=== PATIENT | male | born 1950 | race Hispanic/Latino ===

== ENCOUNTER → 2019-08-28 | Outpatient (CLI) | payer OTHER | END | disposition home or self-care (01) | LOC: OIH 11:31 | PROVIDERS: ATTEND Internal Medicine Cardiovascular Disease | DX: Z13.6 Encounter for screening for cardiovascular disorders (principal) | CPT/HCPCS: 75571 ==

== ENCOUNTER → 2024-11-23 | Outpatient (CLI) | payer OTHER, MEDICARE | END | disposition home or self-care (01) | LOC: SHCH 14:25 | PROVIDERS: ATTEND Internal Medicine Cardiovascular Disease | DX: I08.0 Rheumatic disorders of both mitral and aortic valves (principal); R06.09 Other forms of dyspnea | CPT/HCPCS: 93306 ==

== ENCOUNTER → 2024-11-25 | Outpatient (CLI) | payer OTHER, MEDICARE ==
[2024-11-25] MEDS: REGADENOSON 0.4 MG/5 ML PF SYG IVP ONE (13:11)
--- NOTE | 2024-11-26 07:45 | HMCSR ---
APPROVED REPORT Height: 5 ft 6in Weight: 155 lbs TEST INDICATIONS Dyspnea The imaging protocol used to acquire images was Rest Tc-99m/stress Tc-99m 1 day Consent: The procedure was explained and understood by the patient. Informerd consent was witnessed Ivette Rebolledo RN First, low dose rest was performed then high dose stress. RESTING DATA: The resting ekg shows: Atrial Fibrillation Rest SPECT myocardial perfusion imaging was performed in supine position 56 minutes following the int ravenous injection of 11.1 mCi of Tc-99 Sestamibi. Time of rest injection: 09:02: Date: 11/25/2024 Time of rest imagin:58: Date: 11/25/2024 PHARMACOLOGIC STRESS: Pharmacologic stress test was performed by injecting regadenoson 0.4 mg IV push followed by the intra venous injection of 32.0 mCi of Tc-99 Sestamibi. Time of stress injection: 10:36: Date: 11/25/2024 Time of stress imagin:14: Date: 11/25/2024 Heart Rate at time of stress injection: 77 bpm. Gated Stress SPECT was performed 98 minutes after stress injection. The images were gated to evaluate regional wall motion and calculate left ventricular ejection fracti on. STRESS DETAILS Reason for Termination: Infusion complete Stress Symptoms: Dyspnea Max HR Achieved: 122 bpm % of APMHR Achieved: 76 Max Blood Pressure: 126/76 mmHg Stress ECG: Atrial Fibrillation LEFT VENTRICLE Size: The left ventricular size is mildly dilated. Systolic Function:The left ventricular systolic function is mildly decreased. Wall Motion: Infero-apical hypokinesis. The left ventricular ejection fraction was calculated to be 53%.TID = . LV PERFUSION Normal stress perfusion with early isotope washout. No reversible defects noted. Conclusion The left ventricular size is mildly dilated. The left ventricular systolic function is mildly decreased. Infero-apical hypokinesis. Normal stress perfusion with early isotope washout. No reversible defects noted. The left ventricular ejection fraction was calculated to be 53%.
== END | disposition home or self-care (01) ==
LOC: SHCH 08:22
PROVIDERS: ATTEND Internal Medicine Cardiovascular Disease
DX: I51.7 Cardiomegaly (principal); I48.91 Unspecified atrial fibrillation; R06.09 Other forms of dyspnea
CPT/HCPCS: 78452; 93017; J2785; A9500 ×2